=== PATIENT | female | born 1950 | race Hispanic/Latino ===

== ENCOUNTER 2022-08-31 12:12 | Inpatient (IN) | payer MEDICARE ==
[~2022-08-31] VITALS: Ht 152.4 cm; Wt 85.1 kg
[2022-08-31] MEDS ORDERED: MECLIZINE HCL 12.5 MG TABLET PO ONE (12:30)
[2022-08-31 12:35] LABS: EOSINOPHILS % (AUTO) 0.7 % (0.0-8.0); HEMATOCRIT 40.2 % (36-48); LYMPHOCYTES % (AUTO) 14.4 % (21.0-51.0); MEAN CORPUSCULAR HEMOGLOBIN 29.2 pg (27.0-33.0); MEAN CORPUSCULAR HGB CONC 32.3 g/dL (32.0-36.0); MEAN CORPUSCULAR VOLUME 90.3 fL (79-99); MONOCYTES % (AUTO) 4.9 % (3.0-13.0); NEUTROPHILS % (AUTO) 73.8 % (40.0-77.0); PLATELET COUNT (AUTO) 367 K/uL (130-400); RED BLOOD CELL COUNT(AUTO) 4.45 MIL/uL (4.00-5.50); RED CELL DISTRIBUTION WIDTH 13.4 % (11.0-15.5); WHITE BLOOD COUNT (AUTO) 7.7 K/uL (4.8-10.8)
[2022-08-31 12:51] LABS: ALBUMIN 3.4 g/dL (3.5-5.0); CREATININE 1.4 mg/dL (0.5-1.5); POTASSIUM 4.2 mmol/L (3.5-5.1); TOTAL PROTEIN, SERUM 7.6 g/dL (6.0-8.3)
[2022-08-31] MEDS ORDERED: MECLIZINE HCL 25 MG TABLET ONE (13:01)
[2022-08-31] MEDS ORDERED: 0.9%NACL 1000ML 2,000 ML IV ONE (13:30)
[2022-08-31] MEDS ORDERED: INSULIN HUMULIN R 100 UNIT/ML 3ML IV ONE (13:30)
[2022-08-31 15:23] LABS: ABG OXYGEN SATURATION 41.8 % (95.0-99.0); BASE EXCESS,VENOUS BLOOD GAS -4.8 (-2.0-3.0); HCO3,VENOUS BLOOD GAS 19.9 (21.0-28.0); PCO2,VENOUS BLOOD GAS 36 (32-45); PH,VENOUS BLOOD GAS 7.363 (7.350-7.450)
[2022-08-31] MEDS ORDERED: DONE10TA43 PO (15:26)
[2022-08-31] MEDS ORDERED: LEVO150T11 PO (15:26)
[2022-08-31] MEDS ORDERED: EMPA1TAB34 PO (15:26)
[2022-08-31] MEDS ORDERED: CHLO25TA3 PO (15:26)
[2022-08-31] MEDS ORDERED: LISI20TA24 PO (15:26)
[2022-08-31] MEDS ORDERED: SEMA3TAB4 PO (15:26)
[2022-08-31] MEDS ORDERED: IPRATROPIUM 0.5 MG/2.5 ML INH IH PRN (15:30)
[2022-08-31] MEDS ORDERED: ACETAMINOPHEN 500 MG TABLET PO PRN (15:30)
[2022-08-31] MEDS ORDERED: INSULIN HUMULIN R 100 UNIT/ML 3ML SQ SCH (15:30)
[2022-08-31] MEDS ORDERED: ONDANSETRON 4MG INJ IVP PRN (15:30)
[2022-08-31] MEDS ORDERED: ACETAMINOPHEN 325 MG TAB PO PRN (15:30)
[2022-08-31 15:48] LABS: INR 0.94 (0.85-1.15); PROTHROMBIN TIME 10.9 SEC (9.6-11.6)
[2022-08-31 15:49] LABS: APPEARANCE,URINE CLEAR (CLEAR); BILIRUBIN,URINE NEGATIVE (NEGATIVE); COLOR,URINE COLORLESS (YELLOW); GLUCOSE, URINE (UA) >=1000 mg/dL (NEGATIVE); KETONES,URINE NEGATIVE (NEGATIVE); LEUKOCYTE ESTERASE ,URINE NEGATIVE Leu/uL (NEGATIVE); NITRATE,URINE NEGATIVE (NEGATIVE); PH,URINE 5.5 (5.0-8.0); PROTEIN,URINE 20 mg/dL (NEGATIVE); UROBILINOGEN,URINE 0.2 mg/dL (0.2-1.0)
[2022-08-31 15:50] LABS: PARTIAL THROMBOPLASTIN TIME 25.9 SEC (26.3-35.5)
[2022-08-31 15:53] LABS: MUCUS,URINE RARE LPF (None Seen); RBC,URINE 0-1 /HPF (0-1); SQUAMOUS EPITHELIAL CELL,UR RARE /HPF (0-2); WBC,URINE 0-1 /HPF (0-1)
[2022-08-31] MEDS: PANTOPRAZOLE 40 MG TAB DR PO SCH (16:04)
[2022-08-31] MEDS: 0.9%NACL 1000ML 1,000 ML IV SCH (16:08)
[2022-08-31 16:24] LABS: THYROID STIMULATING HORMONE 47.05 uIU/mL (0.36-3.74)
[2022-08-31] MEDS ORDERED: MAGNESIUM 2GM PREMIX 50ML 50 ML IV SCH (19:00)
[2022-08-31] MEDS: DONEPEZIL HCL 5 MG TAB PO SCH (20:32)
[2022-08-31] MEDS: INSULIN HUMULIN R 100 UNIT/ML 3ML SQ SCH (20:33)
[2022-08-31 20:55] VITALS: BP 144/74
[2022-08-31] MEDS ORDERED: NON-FORMULARY MEDICATION 1 EACH (Donepezil HCl 10 MG) PO SCH (21:00)
[2022-09-01 00:20] VITALS: BP 121/76
[2022-09-01 04:11] LABS: EOSINOPHILS % (AUTO) 1.7 % (0.0-8.0); HEMATOCRIT 37.7 % (36-48); LYMPHOCYTES % (AUTO) 25.5 % (21.0-51.0); MEAN CORPUSCULAR HGB CONC 32.1 g/dL (32.0-36.0); MEAN CORPUSCULAR VOLUME 93.3 fL (79-99); MONOCYTES % (AUTO) 6.2 % (3.0-13.0); NEUTROPHILS % (AUTO) 61.1 % (40.0-77.0); PLATELET COUNT (AUTO) 323 K/uL (130-400); RED BLOOD CELL COUNT(AUTO) 4.04 MIL/uL (4.00-5.50); RED CELL DISTRIBUTION WIDTH 13.4 % (11.0-15.5); WHITE BLOOD COUNT (AUTO) 8.4 K/uL (4.8-10.8)
[2022-09-01 04:17] LABS: ALBUMIN 3.1 g/dL (3.5-5.0); CREATININE 1.2 mg/dL (0.5-1.5); MAGNESIUM 2.1 mg/dL (1.80-2.40); POTASSIUM 3.9 mmol/L (3.5-5.1); TOTAL PROTEIN, SERUM 6.9 g/dL (6.0-8.3)
[2022-09-01 05:10] VITALS: BP 152/81
[2022-09-01] MEDS: INSULIN HUMULIN R 100 UNIT/ML 3ML SQ SCH ×6 (06:21→21:45)
[2022-09-01 07:59] VITALS: BP 132/90
[2022-09-01] MEDS: ENOXAPARIN SODIUM 40 MG/0.4 ML SYRINGE SQ SCH (08:21)
[2022-09-01] MEDS: LINAGLIPTIN 5 MG TABLET PO SCH (08:21)
[2022-09-01] MEDS: LISINOPRIL 20 MG TABLET PO SCH (08:21)
[2022-09-01] MEDS ORDERED: Chlorthalidone 25 MG PO SCH (09:00)
[2022-09-01] MEDS ORDERED: INSULIN GLARGINE 100 UNITS/ML 10 ML VIAL SQ SCH (09:00)
[2022-09-01] MEDS ORDERED: LEVOTHYROXINE 150 MCG TABLET PO SCH (09:00)
[2022-09-01] MEDS: 0.9%NACL 1000ML 1,000 ML IV SCH (10:07)
[2022-09-01 12:00] VITALS: BP 145/91
[2022-09-01] MEDS: PANTOPRAZOLE 40 MG TAB DR PO SCH (15:59)
[2022-09-01 16:00] VITALS: BP_SYST 117; BP_SYST 154; BP_DIAS 69; BP_DIAS 73
[2022-09-01 16:38] LABS: HEMOGLOBIN A1C 13.9 % (4.0-6.0)
[2022-09-01 20:00] VITALS: BP 135/80
[2022-09-01] MEDS: DONEPEZIL HCL 5 MG TAB PO SCH (21:43)
[2022-09-02] VITALS: BP 138/83
[2022-09-02 03:40] VITALS: BP 134/81
[2022-09-02 04:55] LABS: HEMATOCRIT 42.3 % (36-48); MEAN CORPUSCULAR HEMOGLOBIN 29.6 pg (27.0-33.0); MEAN CORPUSCULAR HGB CONC 31.9 g/dL (32.0-36.0); MEAN CORPUSCULAR VOLUME 92.8 fL (79-99); RED BLOOD CELL COUNT(AUTO) 4.56 MIL/uL (4.00-5.50); RED CELL DISTRIBUTION WIDTH 13.8 % (11.0-15.5); WHITE BLOOD COUNT (AUTO) 10.9 K/uL (4.8-10.8)
[2022-09-02 05:01] LABS: CREATININE 1.4 mg/dL (0.5-1.5); POTASSIUM 3.8 mmol/L (3.5-5.1)
[2022-09-02] MEDS: LEVOTHYROXINE 150 MCG TABLET PO SCH ×2 (06:31→08:46)
[2022-09-02] MEDS: INSULIN HUMULIN R 100 UNIT/ML 3ML SQ SCH (06:33)
[2022-09-02] MEDS: 0.9%NACL 1000ML 1,000 ML IV SCH (06:39)
[2022-09-02] MEDS ORDERED: INSULIN HUMULIN R 100 UNIT/ML 3ML SQ SCH (07:30)
[2022-09-02 08:00] VITALS: BP 108/81
[2022-09-02] MEDS: ENOXAPARIN SODIUM 40 MG/0.4 ML SYRINGE SQ SCH (08:46)
[2022-09-02] MEDS: LISINOPRIL 20 MG TABLET PO SCH (08:46)
[2022-09-02] MEDS: LINAGLIPTIN 5 MG TABLET PO SCH (08:46)
[2022-09-02] MEDS ORDERED: INSULIN GLARGINE 100 UNITS/ML 10 ML VIAL SQ SCH (09:00)
== END 2022-09-02 13:00 | disposition home health service (06) | DRG 637 ==
LOC: EDH 12:12 → EDHIP 15:27 → OBSVTOIN 15:27 → 3CH 20:56
PROVIDERS: ADMIT Hospitalist; ATTEND Hospitalist
DX: E11.65 Type 2 diabetes mellitus with hyperglycemia (principal); G92.8 Other toxic encephalopathy; F05 Delirium due to known physiological condition; E87.20 Acidosis, unspecified; E87.1 Hypo-osmolality and hyponatremia; I50.32 Chronic diastolic (congestive) heart failure; E86.0 Dehydration; E83.42 Hypomagnesemia; E03.9 Hypothyroidism, unspecified; E66.9 Obesity, unspecified; Z60.8 Other problems related to social environment; Z60.2 Problems related to living alone; E78.5 Hyperlipidemia, unspecified; E87.6 Hypokalemia; E86.1 Hypovolemia; F03.90 Unspecified dementia, unspecified severity, without behavioral disturbance, psychotic disturbance, mood disturbance, and anxiety; I11.0 Hypertensive heart disease with heart failure; Z79.4 Long term (current) use of insulin; Z85.3 Personal history of malignant neoplasm of breast; Z90.11 Acquired absence of right breast and nipple; Z91.199 Patient's noncompliance with other medical treatment and regimen due to unspecified reason; Z91.81 History of falling; Z88.1 Allergy status to other antibiotic agents; Z88.5 Allergy status to narcotic agent; Z88.2 Allergy status to sulfonamides; Z88.8 Allergy status to other drugs, medicaments and biological substances; Z68.36 Body mass index [BMI] 36.0-36.9, adult
CPT/HCPCS: 36415; 36600; 70450; 71045; 80048; 80053; 80061; 81001; 82010; 82140; 82306; 82435; 82550; 82607; 82746; 82803; 82947; 82948; 83036; 83605; 83735; 83880; 83930; 84132; 84145; 84295; 84439; 84443; 84481; 85025; 85027; 85610; 85651; 85730; 86140; 87088; 87635; 87804; 87880; 93005; 93306; 93356; 94664; C9803; G0378; J1650; J1815; J3475; J7030